=== PATIENT | female | born 1955 ===

== ENCOUNTER 2020-11-27 23:44 | Inpatient (IN) | payer BC ==
[~2020-11-27] VITALS: Ht 162.6 cm; Wt 39.5 kg
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
[2020-11-28] MEDS ORDERED: IV RINGERS SOLUTION,LACTATED 1,000 ML IV SCH
[2020-11-28 00:31] LABS: BASO # 0.1 x10^3/uL (0.0-0.2); BASO % 1 % (0-3); EOS % 0 % (0-3); HEMATOCRIT 34.8 % (36.0-47.0); HEMOGLOBIN 11.6 g/dL (12.0-15.5); LYMPH # 1.1 x10^3/uL (1.0-4.8); LYMPH % 9 % (24-48); MEAN CORPUSCULAR HEMOGLOBIN 31 pg (25-35); MEAN CORPUSCULAR HGB CONC 33 g/dL (31-37); MEAN CORPUSCULAR VOLUME 93 fL (79-100); MONO # 0.5 x10^3/uL (0.0-1.1); MONO % 4 % (0-9); NEUT # 9.6 x10^3uL (1.8-7.7); NEUT % 85 % (31-73); PLATELET COUNT 391 x10^3/uL (140-400); RED BLOOD COUNT 3.75 x10^6/uL (3.50-5.40); RED CELL DISTRIBUTION WIDTH 14.7 % (11.5-14.5); WHITE BLOOD COUNT 11.3 x10^3/uL (4.0-11.0)
[2020-11-28 00:31] LABS: CREATININE 1.5 mg/dL (0.6-1.0); GFR 35.1; POTASSIUM 3.9 mmol/L (3.5-5.1)
[2020-11-28 00:43] LABS: ALBUMIN 3.4 g/dL (3.4-5.0); DIRECT BILIRUBIN 0.4 mg/dL (0.0-0.2); TOTAL BILIRUBIN 0.9 mg/dL (0.2-1.0); TOTAL PROTEIN 6.7 g/dL (6.4-8.2)
[2020-11-28 00:50] LABS: CLARITY,URINE CLOUDY; COLOR,URINE YELLOW
[2020-11-28 00:51] LABS: BILIRUBIN,URINE NEG (NEG); GLUCOSE,URINE NEG (NEG); NITRITE,URINE NEG (NEG); RBC,URINE OCC /HPF (0-2)
[2020-11-28 00:52] LABS: AMORPHOUS SEDIMENT,UR PRESENT /HPF; BACTERIA,URINE MANY /HPF (0-FEW); SQUAMOUS EPITHELIAL CELL,UR FEW /LPF
[2020-11-28 00:58] LABS: BARBITURATES NEG (NEG); BENZODIAZEPINES NEG (NEG); CANNABINOIDS NEG (NEG); COCAINE NEG (NEG); METHADONE NEG (NEG); OPIATES NEG (NEG); PHENCYCLIDINE NEG (NEG)
[2020-11-28 01:03] LABS: AMPHETAMINE/METHAMPHETAMINE NEG (NEG)
[2020-11-28] MEDS ORDERED: VANCOMYCIN 1 GM in IV NORMAL SALINE 250ML 250 ML IV ONE ×2 (01:15→01:45)
--- NOTE | 2020-11-28 01:20 | NUR ---
The patient, LILO STERLING, 65 y/o, F admitted by WES CAMPBELL MD, was given written information regarding hospital policies, unit procedures and contact persons. Valuables were taken home by pt , except upper and lower dentures. Pt is oriented only to self; states this is her baseline. Medications and history reviewed with pt . Will continue to monitor.
[2020-11-28] MEDS ORDERED: IV NORMAL SALINE 50ML 50 ML ONE (01:21)
[2020-11-28] MEDS ORDERED: IV NORMAL SALINE 250ML 250 ML ONE (01:21)
[2020-11-28] MEDS ORDERED: VANCOMYCIN 1 GM VIAL. ONE (01:22)
[2020-11-28] MEDS ORDERED: cefTRIAXone SODIUM 1 GM VIAL ONE (01:22)
[2020-11-28] MEDS ORDERED: IOHEXOL 350 MG/ML 100 ML VIAL. IV ONE (01:30)
[2020-11-28] MEDS ORDERED: CONTRAST GIVEN. MC PRN (01:30)
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
[2020-11-28] MEDS ORDERED: RINGERS LACTATED IV ONE (01:45)
[2020-11-28] MEDS ORDERED: SODIUM BICARB ADULT 8.4% 50 MEQ/50 ML DISP.SYRIN. IV ONE (02:00)
[2020-11-28] MEDS ORDERED: IV NORMAL SALINE 1,000ML 1,000 ML IV SCH (02:15)
[2020-11-28] MEDS ORDERED: ACETAMINOPHEN 325 MG TABLET PO PRN (02:15)
[2020-11-28] MEDS ORDERED: ONDANSETRON PF 4 MG/2 ML VIAL. IVP PRN (02:15)
--- NOTE | 2020-11-28 02:27 | RAD ---
PQRS Compliance Statement: One or more of the following individualized dose reduction techniques were utilized for this examinat ion: 1. Automated exposure control 2. Adjustment of the mA and/or kV according to patient size 3. Use of iterative reconstruction technique CT CHEST WITH CONTRAST, PULMONARY ANGIOGRAM History: Reason: Dyspnea Comparison: None. Technique: Helical CT of the chest was performed after the administration of 75 cc Omnipaque 350 int ravenous contrast according to PE protocol. Axial and coronal reconstructions were obtained. 3-D SC P images were constructed to better evaluate the pulmonary arteries. Findings: Pulmonary arteries are adequately opacified. There is no evidence of pulmonary embolism. Aortic arch branches are patent. There is no thoracic aortic dissection. The great vessels are normal caliber. There is coronary artery disease. There is no adenopathy in the chest. There is a 10 x 5 mm soft tissue nodule in the anterior mediastinum, nonspecific. The cardiac size is normal, no pericard ial effusion. There is no pleural effusion. The central airways are patent. There is moderate upper lobe centrilobu lar emphysema. Calcified granuloma right lower lobe. There is no lung consolidation. There is a moderate sized calcification of the pancreas tail. Atherosclerotic calcification of the ab dominal aorta, no aneurysm. Old fractures of left lateral ribs. Thoracic spine alignment is maintained. IMPRESSION: 1. There is no pulmonary embolus. 2. Moderate upper lobe centrilobular emphysema. Electronically signed by: Rafat Nolen MD (11/28/2020 2:25 AM) [facility]
--- NOTE | 2020-11-28 02:53 | EKG ---
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
[2020-11-28] MEDS ORDERED: ATOR20TA58 PO (03:41)
--- NOTE | 2020-11-28 04:12 | NUR ---
Pt rectal temperature reached 96.1 degrees. Warming blanket removed from underneath pt and placed on top of pt between pt and bed linens. Will continue to monitor.
[2020-11-28 06:01] VITALS: BP 120/74
[2020-11-28] MEDS ORDERED: IPRATRPIUM/ALBUTEROL 0.5/2.5MG 3 ML NEBU. NEB SCH (08:00)
--- NOTE | 2020-11-28 08:48 | NUR ---
D/C WARMING PER DR CAMPBELL
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
[2020-11-28] MEDS: METOPROLOL TART IMMED RELEASE 50 MG TABLET PO SCH ×2 (09:00→20:53)
[2020-11-28] MEDS: NICOTINE 21MG PATCH. TD SCH (09:00)
[2020-11-28] MEDS: IPRATROPIUM/ALBUTEROL 20/100mcg/INH INHALER. INH SCH ×4 (10:00→20:53)
[2020-11-28] MEDS: IV NORMAL SALINE 1,000ML 1,000 ML IV SCH ×2 (12:15→22:50)
[2020-11-28 14:44] VITALS: BP 120/68
[2020-11-28 19:40] VITALS: BP 137/79
[2020-11-28 22:50] VITALS: BP 112/69
--- NOTE | 2020-11-29 04:30 | NUR ---
Pt A&O to self only, confused and often yells out for "Karolina" or to be taken to "[employer] to get pretty". Pt thinks she is in her own home and wants a "cigarette". Pt will be reorientated but a few mins later, she but to thinking she is in her own home. Pt ate about 50% of her HS snack and took medications without difficulty. Pt slept decent during night. This AM pt wanted to get up and "go collect eggs for breakfast."
[2020-11-29 05:30] VITALS: BP 112/68
[2020-11-29 06:06] LABS: BASO # 0.1 x10^3/uL (0.0-0.2); BASO % 2 % (0-3); EOS # 0.1 x10^3/uL (0.0-0.7); EOS % 1 % (0-3); HEMATOCRIT 27.1 % (36.0-47.0); HEMOGLOBIN 9.2 g/dL (12.0-15.5); LYMPH # 1.5 x10^3/uL (1.0-4.8); LYMPH % 30 % (24-48); MEAN CORPUSCULAR HEMOGLOBIN 31 pg (25-35); MEAN CORPUSCULAR HGB CONC 34 g/dL (31-37); MEAN CORPUSCULAR VOLUME 91 fL (79-100); MONO # 0.4 x10^3/uL (0.0-1.1); MONO % 8 % (0-9); NEUT # 3.1 x10^3uL (1.8-7.7); NEUT % 60 % (31-73); PLATELET COUNT 288 x10^3/uL (140-400); RED BLOOD COUNT 2.97 x10^6/uL (3.50-5.40); RED CELL DISTRIBUTION WIDTH 14.9 % (11.5-14.5); WHITE BLOOD COUNT 5.2 x10^3/uL (4.0-11.0)
[2020-11-29 06:21] LABS: CALCIUM 7.5 mg/dL (8.5-10.1); CREATININE 0.9 mg/dL (0.6-1.0); GFR 63.2
[2020-11-29 06:24] LABS: POTASSIUM 2.3 mmol/L (3.5-5.1)
[2020-11-29] MEDS ORDERED: MAGNESIUM SULFATE 1GM 100 ML IV ONE (07:30)
[2020-11-29] MEDS: POTASSIUM CHLORIDE 20 MEQ TABLET.ER. PO SCH ×2 (08:44→17:00)
[2020-11-29] MEDS: METOPROLOL TART IMMED RELEASE 50 MG TABLET PO SCH ×2 (08:44→20:33)
[2020-11-29] MEDS: NICOTINE 21MG PATCH. TD SCH (08:44)
[2020-11-29] MEDS: IPRATROPIUM/ALBUTEROL 20/100mcg/INH INHALER. INH SCH ×4 (08:44→20:32)
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
[2020-11-29 11:26] VITALS: BP 129/74
[2020-11-29 15:25] VITALS: BP 152/81
[2020-11-29 19:11] VITALS: BP 158/78
[2020-11-29 22:41] VITALS: BP 114/71
--- NOTE | 2020-11-30 04:55 | NUR ---
Pt still only A&O to self (baseline per ), confused and often yells out for "Kw[employer]" or "Karolina". Pt thinks she is in her own home and often ask to "have a smoke." Pt reminded that she is in the hospital and this is a no smoking facility, pt response with "who made you the smoker boss?". Pt will be reorientated to hospital setting but will go back to thinking she is in her own home. Pt hardly ate HS snack and but did take her medications without difficulty. Pt slept okay during night.
[2020-11-30 05:58] VITALS: BP 120/79
[2020-11-30 06:36] LABS: CALCIUM 8.1 mg/dL (8.5-10.1); CREATININE 0.8 mg/dL (0.6-1.0); GFR 72.4
[2020-11-30 06:39] LABS: POTASSIUM 2.6 mmol/L (3.5-5.1)
[2020-11-30] MEDS ORDERED: MAGNESIUM SULFATE 1GM 100 ML IV ONE (07:30)
[2020-11-30] MEDS: METOPROLOL TART IMMED RELEASE 50 MG TABLET PO SCH ×2 (08:13→20:45)
[2020-11-30] MEDS: IPRATROPIUM/ALBUTEROL 20/100mcg/INH INHALER. INH SCH ×4 (08:13→20:00)
[2020-11-30] MEDS: POTASSIUM CHLORIDE 20 MEQ TABLET.ER. PO SCH ×2 (08:13→17:04)
[2020-11-30] MEDS: NICOTINE 21MG PATCH. TD SCH (08:13)
[2020-11-30 10:46] VITALS: BP 136/66
--- NOTE | 2020-11-30 10:47 | PN ---
DATE: 11/30/2020 ATTENDING PHYSICIAN: Dr. Campbell. SUBJECTIVE: Very sleepy from Ativan. OBJECTIVE FINDINGS: GENERAL: The patient is not having any impending withdrawals. VITAL SIGNS: Blood pressure today is 120/79, pulse 68 and regular, temperature 97.5 degrees Fahrenheit, oxygen saturation 96% on room air. HEENT: Head is without trauma. Pupils are reactive. Orbits are a bit sunken. NECK: Supple. No stridor. LUNGS: Shallow respirations. CARDIOVASCULAR: Showed distant heart tones. ABDOMEN: Soft, no guarding. EXTREMITIES: Showed muscle wasting, no edema. NEUROLOGIC: Pleasantly confused, but arousable. SKIN: Warm and dry. PERTINENT LABORATORY STUDIES: Hemoglobin is 9.2 g/dL from hemodilution. Chemistry panel: Potassium is up from 2.3 to 2.6 mEq per liter, sodium 137. ASSESSMENT: 1. A 65-year-old female with altered mentation. 2. Hypothermia, resolved. 3. Chronic alcoholism. 4. Wernicke-Korsakoff syndrome. 5. Chronic obstructive pulmonary disease. 6. Essential hypertension, normotensive. 7. Old cerebrovascular accident. 8. Asymptomatic hypokalemia. 9. Hyponatremia, corrected. 10. Refractory hypokalemia with associated hypomagnesemia. PLAN: 1. Continue potassium supplementation. 2. Magnesium supplementation. 3. Ativan p.r.n. 4. Discharge planning for home tomorrow. 5. Serial chemistries. WES CAMPBELL MD DR: SANDEEP/jessy JOB#: [id number] / [id number]
[2020-11-30 14:42] VITALS: BP 115/71
[2020-11-30 20:20] VITALS: BP 144/83
[2020-12-01 00:06] VITALS: BP 152/84
[2020-12-01 05:29] VITALS: BP 155/84
[2020-12-01 06:43] LABS: CALCIUM 8.4 mg/dL (8.5-10.1); CREATININE 0.8 mg/dL (0.6-1.0); GFR 72.4; POTASSIUM 3.7 mmol/L (3.5-5.1)
[2020-12-01] MEDS: NICOTINE 21MG PATCH. TD SCH (07:55)
[2020-12-01] MEDS: METOPROLOL TART IMMED RELEASE 50 MG TABLET PO SCH ×2 (07:55→20:50)
[2020-12-01] MEDS: IPRATROPIUM/ALBUTEROL 20/100mcg/INH INHALER. INH SCH ×4 (07:56→20:00)
[2020-12-01] MEDS: POTASSIUM CHLORIDE 20 MEQ TABLET.ER. PO SCH ×2 (07:56→17:20)
[2020-12-01 11:00] VITALS: BP 131/81
[2020-12-01 15:00] VITALS: BP 165/93
--- NOTE | 2020-12-01 18:53 | PN ---
DATE: 12/01/2020 SUBJECTIVE: The patient is resting, slightly propped up in bed, in no apparent distress. On questioning her, she denied any complaints, stated she is doing extremely well. According to her, the nursing staff stated that she is more awake today compared to a few days ago when she was extremely obtunded and physical therapist could not work with her. She claimed that she was driving to go. She was managed to go all the way to [place] to live in their ranch in [place]; however, according to her , she has not been driving. She was also extremely emaciated, cachectic with very poor appetite and the nursing staff today managed only to give her medication with applesauce was only thing that she has eaten. PHYSICAL EXAMINATION: GENERAL: When I saw her today, she was pale, extremely cachectic. Her body mass index only 14.9 kilograms square meter. There is no jaundice or cyanosis. No lymphadenopathy, no thyromegaly. No jugular venous distention. No limb edema. VITAL SIGNS: Her heart rate was 64, blood pressure was 131/81, temperature was 98.1, respiratory rate was 16, and oxygen saturation was 94%. HEAD, EYES, EARS, NOSE AND THROAT: Showed normocephalic, atraumatic. NECK: Supple. HEART: Showed normal first and second heart sounds. No gallop, rub or murmur. CHEST: Clear to auscultation. No crepitation or rhonchi. ABDOMEN: Distended, soft, nontender. No guarding or rigidity. No organomegaly. All hernial orifice intact. Bowel sounds normal. NEUROLOGIC: She is awake, alert; however, according to the nursing staff, she is demented and confused; however, all her cranial nerves are intact. She has severe muscle wasting and fixed flexion contraction of all her limbs. She has an indwelling Wheatley catheter. Her intake over the last 24 hours was incompletely recorded, output was 1550. LABORATORY DATA: As of this morning, her most recent white cell count was 5200; hemoglobin 9.2; hematocrit 27; MCV 91; and platelet count 288,000. Her chemistry showed a serum sodium of 139, potassium 3.7, chloride 105, bicarbonate 22, anion gap of 12, BUN 10, creatinine 0.8, estimated GFR was 72 mL per minute. Her glucose was 82, calcium was 8.4. Her prothrombin time, INR and aPTT are normal. D-dimer was high at 1.49. Urinalysis, she has large leukocyte esterase. Her urine toxic screen was negative; however, her urine culture showed growth of more than 100,000 colony forming units per mL of gram-negative rods identified as Escherichia coli practically sensitive to oral antibiotic. Her blood cultures showed no growth after 3 days. ASSESSMENT: 1. A 65-year-old female patient, who was admitted originally with altered mental status, resolving. 2. Hyponatremia, resolved. She is now normothermic temperature of 98. 3. Chronic alcoholism, although according to nursing staff, she has not been drinking recently. 4. Wernicke-Korsakoff syndrome. 5. Chronic obstructive pulmonary disease. The patient apparently continues to smoke. 6. Essential hypertension. 7. Old cerebrovascular accident. 8. Symptomatic hypokalemia that has resolved. 9. Hyponatremia that resolved. 10. Marked muscle wasting and fixed flexion contraction in all 4 limbs. PLAN: My plan is to repeat all her lab works tomorrow, start her on IV Rocephin for her UTI and if she remains stable tomorrow, she can be discharged to continue on oral antibiotic. CIRILO WINTERS MD DR: MARIO ALBERTO/jessy JOB#: [id number] / [id number]
[2020-12-01 20:16] VITALS: BP 159/94
[2020-12-02 05:54] VITALS: BP 148/83
[2020-12-02 06:26] LABS: HEMATOCRIT 34.6 % (36.0-47.0); HEMOGLOBIN 11.8 g/dL (12.0-15.5); RED BLOOD COUNT 3.81 x10^6/uL (3.50-5.40); RED CELL DISTRIBUTION WIDTH 15.4 % (11.5-14.5); WHITE BLOOD COUNT 6.6 x10^3/uL (4.0-11.0)
[2020-12-02 06:40] LABS: ALBUMIN 2.8 g/dL (3.4-5.0); ALBUMIN/GLOBULIN RATIO 0.9 (1.0-1.7); CALCIUM 8.6 mg/dL (8.5-10.1); MAGNESIUM 1.7 mg/dL (1.8-2.4); POTASSIUM 4.5 mmol/L (3.5-5.1); TOTAL BILIRUBIN 0.5 mg/dL (0.2-1.0); TOTAL PROTEIN 5.8 g/dL (6.4-8.2)
[2020-12-02] MEDS: POTASSIUM CHLORIDE 20 MEQ TABLET.ER. PO SCH (08:00)
[2020-12-02 10:45] VITALS: BP 151/84
[2020-12-02] MEDS: NICOTINE 21MG PATCH. TD SCH (10:51)
[2020-12-02] MEDS: METOPROLOL TART IMMED RELEASE 50 MG TABLET PO SCH (10:52)
[2020-12-02] MEDS: IPRATROPIUM/ALBUTEROL 20/100mcg/INH INHALER. INH SCH ×2 (10:52→12:00)
--- NOTE | 2020-12-02 14:07 | DISCH ---
DISCHARGE ORDERS DISCHARGE DATE: Dec 02, 2020 FINAL DIAGNOSIS debility and weakness muscle wasting and contracture sevre malnutrition CONDITION AT DISCHARGE: Stable Code Status: DNR/DNI SNF STAY <30 DAYS: No HOSPICE: Yes HOSPICE EVALUATE & TREAT: Yes ADMIT TO LTAC: No POST DISCHARGE ORDERS: ACTIVITY ORDERS: Activity as tolerated DIET AFTER DISCHARGE: Regular DISCHARGE MEDICATIONS: Home Meds Reported Medications Atorvastatin Calcium (ATORVASTATIN CALCIUM) 20 Mg Tablet, 1 TAB PO DAILY for HLD/HTN, #30 TAB 5 Refills 11/28/20 CIRILO WINTERS MD Dec 02, 2020 14:07
--- NOTE | 2020-12-02 14:54 | DS ---
DATE OF DISCHARGE: 12/02/2020 HOSPITAL COURSE: The patient is a 65-year-old female patient who was admitted originally on 11/28/2020 with hypothermia, altered mental status. 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 She was extremely cachectic with marked muscle wasting and fixed flexion contraction of all her limbs and apparently a discussion was held between the professor of social work and the family, who opted to discharge the patient to a intermediate on hospice for comfort and end of life care. When I examined her this afternoon, she was pale, extremely cachectic with body mass index only 14.9 kilograms square meter. PHYSICAL EXAMINATION: VITAL SIGNS: Her heart rate was 72, blood pressure was 151/84, temperature 97.6, respiratory rate 20, and oxygen saturation was 100% on room air. HEAD, EYES, EARS, NOSE AND THROAT: Showed normocephalic, atraumatic. NECK: Supple. HEART: Showed normal first and second heart sounds. No gallop or murmur. CHEST: Clear to auscultation. No crepitation or rhonchi. ABDOMEN: Distended, soft, nontender. NEUROLOGIC: She was confused, demented, but without any obvious lateralizing sign; however, she has extreme muscle wasting and fixed flexion contraction of all 4 limbs. LABORATORY DATA: This morning showed a white cell count 6600, hemoglobin 11.8, hematocrit 35, MCV 91, and platelet count 319,000. Her serum sodium was 142, potassium 4.5, chloride 109, bicarbonate 20, anion gap of 13, BUN 14, creatinine 1, estimated GFR was 56 mL per minute. Her glucose was 89, calcium was 8.6, magnesium was 1.7. Total bilirubin, AST, ALT, alkaline phosphatase were normal. Total protein 5.8, albumin was 2.8. Her prothrombin time, INR and aPTT are normal. D-dimer was slightly elevated. Her coronavirus by PCR was not detectable. DISCHARGE DISPOSITION: She was discharged to [facility] to continue on hospice care for end of life care. DISCHARGE MEDICATIONS: She was discharged on Roxanol 20 mg per mL solution to take 0.25-1 mL that is 5-20 mg p.o. sublingual every 4 hours as needed for pain or shortness of breath, Ativan 2 mg per mL solution to take 0.25-1 mL that is 0.5-2 mg p.o. sublingually every 4 hours for anxiety. FINAL DISCHARGE DIAGNOSES: 1. 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 2. Severe cachexia and malnutrition with body mass index only 14.5 kilograms square meter. 3. Chronic obstructive pulmonary disease. 4. Chronic alcoholism. 5. Essential hypertension. CIRILO WINTERS MD DR: MARIO ALBERTO/jessy JOB#: [id number] / [id number]
[2020-12-02 15:18] VITALS: BP 143/80
--- NOTE | 2020-12-02 16:40 | NUR ---
pt alert to self, rambling incoherent words at times. pt transferred via ems to [facility] on hospice. family agrees with plan of care. report called to MIKE manzo. paperwork and hospice orders sent with patient.
== END 2020-12-02 16:40 | disposition hospice, inpatient (51) | DRG 682 ==
LOC: ER 23:44 → 1 SOUTH 11-28 02:00
PROVIDERS: ADMIT Hospitalist; ATTEND Internal Medicine
DX: N17.0 Acute kidney failure with tubular necrosis (principal); G93.41 Metabolic encephalopathy; E87.1 Hypo-osmolality and hyponatremia; E46 Unspecified protein-calorie malnutrition; R64 Cachexia; Z68.1 Body mass index [BMI] 19.9 or less, adult; T69.9XXA Effect of reduced temperature, unspecified, initial encounter; F04 Amnestic disorder due to known physiological condition; D64.9 Anemia, unspecified; E11.9 Type 2 diabetes mellitus without complications; E83.42 Hypomagnesemia; E87.6 Hypokalemia; F02.80 Dementia in other diseases classified elsewhere, unspecified severity, without behavioral disturbance, psychotic disturbance, mood disturbance, and anxiety; F10.26 Alcohol dependence with alcohol-induced persisting amnestic disorder; F17.200 Nicotine dependence, unspecified, uncomplicated; G30.9 Alzheimer's disease, unspecified; H54.7 Unspecified visual loss; I10 Essential (primary) hypertension; J43.2 Centrilobular emphysema; V89.2XXA Person injured in unspecified motor-vehicle accident, traffic, initial encounter; Y92.410 Unspecified street and highway as the place of occurrence of the external cause; Z51.5 Encounter for palliative care; Z86.73 Personal history of transient ischemic attack (TIA), and cerebral infarction without residual deficits; F32.9 Major depressive disorder, single episode, unspecified; M19.90 Unspecified osteoarthritis, unspecified site; Z20.822 Contact with and (suspected) exposure to COVID-19; M54.2 Cervicalgia
CPT/HCPCS: 36415; 51702; 70450; 71045; 71275; 72125; 80048; 80053; 80076; 80307; 81001; 82550; 82947; 83605; 83690; 83735; 83880; 84443; 84484; 85025; 85027; 85379; 85610; 85730; 87040; 87077; 87086; 87186; 93005; 96361; 96365; 96372; 96375; J0696; J2060; J3370; J3475; J7050; J7120; Q9967; U0003; 99285-25; J7030